=== PATIENT | male | born 1985 | race Caucasian/White ===

== ENCOUNTER 2022-11-21 08:33 | Emergency (ER) | payer SELFPAY ==
[~2022-11-21] VITALS: Ht 185.4 cm; Wt 111.1 kg
[~2022-11-21 08:33] MED LIST: LISI10TA29 PO
[2022-11-21 08:39] VITALS: BP_SYST 157
[2022-11-21] MEDS ORDERED: AUG875 PO (08:58)
[2022-11-21 09:15] VITALS: BP_SYST 157
== END 2022-11-21 09:16 | disposition home or self-care (01) ==
LOC: SED 08:33
DX: L03.211 Cellulitis of face (principal); H66.92 Otitis media, unspecified, left ear; R22.0 Localized swelling, mass and lump, head; I10 Essential (primary) hypertension; Z79.899 Other long term (current) drug therapy
CPT/HCPCS: 99283